=== PATIENT | female | born 1980 | race Caucasian/White ===

== ENCOUNTER 2017-01-31 17:21 | Emergency (ER) | payer MEDICAID, OTHER ==
[2017-01-31 17:21] VITALS: BMI 29.6
[2017-01-31 17:46] VITALS: RESP 18; O2SAT 100
[2017-01-31] MEDS ORDERED: Sodium Chloride 0.9% 1,000 ML IV ONE (18:10)
--- NOTE | 2017-01-31 18:22 | C.PDOC ---
History Of Present Illness <Shobha Stern - Last Filed: 01/31/17 18:44> <Jodi Brennan - Last Filed: 01/31/17 23:20> 36 y/o female with Hx of Anemia and Endometriosis surgery presents to ED with complaints of RUQ pain with associated diarrhea for "a couple of months". Patient denies fever, chills, nausea, vomiting, back pain or any other complaints at this time. 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 Constitutional: Negative for: Fever, Chills Gastrointestinal: Positive for: Abdominal Pain, Diarrhea. Negative for: Nausea , Vomiting, Constipation Genitourinary: Negative for: Dysuria, Frequency Musculoskeletal: Negative for: Back Pain Skin: Negative for: Rash <Shobha Stern - Last Filed: 01/31/17 18:44> Physical Exam - Physical Exam Appears: Non-toxic, No Acute Distress Skin: Normal Color, Warm, Dry, No Rash Head: Atraumatic, Normacephalic Eye(s): bilateral: Normal Inspection Oral Mucosa: Moist Neck: Normal ROM, Supple Chest: Symmetrical Cardiovascular: Rhythm Regular, No Murmur Respiratory: Normal Breath Sounds, No Rales, No Rhonchi, No Wheezing Gastrointestinal/Abdominal: Soft, Tenderness (Mild RUQ), No Guarding, No Rebound Back: No CVA Tenderness, No Paraspinal Tenderness Extremity: Normal ROM, Capillary Refill (<2 seconds) Neurological/Psych: Oriented x3 Gait: Steady <Shobha Stern - Last Filed: 01/31/17 18:44> ED Course And Treatment - Laboratory Results Result Diagrams: 01/31/17 18:24 01/31/17 18:24 O2 Sat by Pulse Oximetry: 100 (RA) Pulse Ox Interpretation: Normal Progress Note: treated with IVF NSS. US abdomen ordered Reassessment Condition: Unchanged <Shobha Stern Last Filed: 01/31/17 18:44> - Laboratory Results Result Diagrams: 01/31/17 18:24 01/31/17 18:24 - CT Scan/US US Abdomen Other Rad Studies (CT/US): Interpreted By Me, Read By Radiologist CT/US Interpretation: EXAM: US Abdomen Limited, Right Upper Quadrant. EXAM DATE/TIME: Exam ordered 01/31/2017 6:14 PM. CLINICAL HISTORY: 36 years old, female; Pain; Abdominal pain; Generalized; Additional info: Pain ruq. TECHNIQUE : Real-time ultrasound of the right upper quadrant with image documentation. COMPARISON: No relevant prior studies available. FINDINGS: Liver: The echotexture the liver is somewhat coarsened. The liver measures 13 cm in craniocaudal. span. There is normal blood flow direction in the main portal vein. Normal phasic flow is noted within. the right hepatic vein. Gallbladder : The gallbladder is contracted. No gallstones are seen. Common bile duct: The common bile duct measures 2 mm. No stones. No dilation. Pancreas: The pancreatic neck is normal. The head, body and tail are not well-seen due to bowel. gas. Right kidney: The right kidney measures 9.3 x 4.1 x 4.1 cm. A hypoechoic mass is noted in the. upper pole of the right kidney measuring 0.9 x 0.9 1.6 cm. There is mild posterior wall enhancement. There is poor through- transmission of sound No stones. Aorta: The mid and distal abdominal aorta are not seen due to bowel gas. IMPRESSION: 1. Coarsening of liver echotexture suggests underlying infiltrative process such as fatty infiltration or. fibrosis. This could also partly technical. 2. Hypoechoic mass in the upper pole the right kidney not meeting ultrasound criteria for simple cyst. Recommend abdominal CT or MRI follow-up in 1 year. <Jodi Brennan - Last Filed: 01/31/17 23:20> Medical Decision Making <Shobha Stern - Last Filed: 01/31/17 18:44> <Jodi Brennan - Last Filed: 01/31/17 23:20> Medical Decision Making: Plan: * Labs * Abdominal ultrasound (Shobha Stern) 11:15 Patient remains comfortable in ED. she is currently being treated with Augmentin for UTI. She has RUQ abdominal and right flank pain for several months. Ultrasound shows a hypoechoic mass in the upper pole of the right kidney that was not present on CT done 2013. Advised to follow up with Dr aHrry as an outpatient for further work-up. (Jodi Brennan) Disposition - Disposition Disposition Time: 19:00 - POA Present On Arrival: None <Shobha Stern - Last Filed: 01/31/17 18:44> - Disposition Disposition Time: 23:18 <Jodi Brennan - Last Filed: 01/31/17 23:20> - Disposition Referrals: Dusty Harry MD [Staff Provider] - Disposition: HOME/ ROUTINE Condition: STABLE Instructions: Flank Pain (ED) Forms: [employer] (Luxembourgish) - Clinical Impression Clinical Impression: Abdominal pain - PA / HOSPITALITY SPECIALIST / Resident Statement MD/DO has reviewed & agrees with the documentation as recorded. - Scribe Statement The provider has reviewed the documentation as recorded by the Scribe <Shobha Stern - Last Filed: 01/31/17 18:44> <Jodi Brennan - Last Filed: 01/31/17 23:20> - Scribe Statement Klebre Karimi All medical record entries made by the Scribe were at my direction and personally dictated by me. I have reviewed the chart and agree that the record accurately reflects my personal performance of the history, physical exam, medical decision making, and the department course for this patient. I have also personally directed, reviewed, and agree with the discharge instructions and disposition. (Shobha Stern) Physician Patient Turnover Patient Signed Over To: Jodi Brennan Handoff Comments: pending US <Shobha Stern - Last Filed: 01/31/17 18:44>
[2017-01-31] MEDS ORDERED: Sodium Chloride 0.9% 1,000 ML ONE (18:25)
[2017-01-31 18:28] LABS: BASO % 0.4 % (0.0-2.0); EOS % 0.6 % (0.0-4.0); HEMATOCRIT 29.2 % (34.0-47.0); LYMPH # 1.6 K/uL (1.0-4.3); MEAN CELL VOLUME 74.2 fL (81.0-99.0); MEAN CORPUSCULAR HEMOGLOBIN 22.7 pg (27.0-31.0); MEAN CORPUSCULAR HGB CONC 30.5 g/dL (33.0-37.0); MEAN PLATELET VOLUME 8.1 fL (7.2-11.7); MONO # 0.4 K/uL (0.0-0.8); MONO % 6.2 % (0.0-10.0); RED CELL DISTRIBUTION WIDTH 18.3 % (11.5-14.5); WHITE BLOOD COUNT 6.5 K/uL (4.8-10.8)
[2017-01-31 18:36] LABS: CHLORIDE 103 mmol/L (98-107)
[2017-01-31 18:37] LABS: SODIUM 140 mmol/L (132-148)
[2017-01-31 18:39] LABS: ALB/GLOB RATIO 1.3 (1.0-2.1); ALKALINE PHOSPHATASE 56 U/L (38-126); ALT/SGPT 21 U/L (9-52); AST/SGOT 23 U/L (14-36); BILIRUBIN,TOTAL 0.3 mg/dL (0.2-1.3); BLOOD UREA NITROGEN 10 mg/dL (7-17); CALCIUM 8.8 mg/dl (8.6-10.4); CARBON DIOXIDE 24 mmol/L (22-30); GFR AFRICAN-AMERICAN > 60; GLUCOSE,RANDOM 78 mg/dL (65-105); TOTAL PROTEIN 7.6 g/dL (6.3-8.3)
[2017-01-31 18:46] LABS: RBC URINE 5 /hpf (0-3); URINE BACTERIA FEW (<OCC); URINE BILIRUBIN NEGATIVE (NEGATIVE); URINE BLOOD NEGATIVE (NEGATIVE); URINE COLOR Straw (YELLOW); URINE GLUCOSE (UA) NORMAL (Normal); URINE KETONE NEGATIVE (NEGATIVE); URINE LEUKOCYTE ESTERASE 3+ Leu/uL (Negative); URINE PROTEIN NEGATIVE (NEGATIVE); URINE UROBILINOGEN NORMAL mg/dL (0.2-1.0); WBC URINE 36 /hpf (0-5)
[2017-01-31] MEDS ORDERED: Clindamycin 600mg/50ml D5W 600 MG/50 ML VIAL IVPB SCH (23:15)
[2017-01-31 23:36] VITALS: BP 123/78; PULSE 79; TEMP 98.7
--- NOTE | 2017-02-01 08:32 | US ---
Right upper quadrant abdominal ultrasound History: Right upper quadrant abdominal pain. Comparison: None available. Technique: Real-time sonography was performed through the right upper quadrant of the abdomen. Findings: Liver: 13 centimeters in length. Increased echogenicity of the hepatic parenchymal cortex suggestive for hepatic parenchymal disease versus fatty infiltration. Contracted gallbladder. No gross calculi or sludge. Normal wall thickness of 2.5 millimeters. Common bile duct measures 2 millimeters, within normal limits. Pancreas not well visualized. Visualized aorta and IVC are preserved. Right kidney: 9.3 x 4.1 x 4.1 centimeters. Hypoechoic mass noted in the upper pole the right kidney measuring 1.6 x 0.9 x 0.9 centimeters. Mild posterior wall enhancement. Poor through transmission of sound. No calculi. Impression: Hypoechoic mass in the upper pole of the right kidney not meeting ultrasound criteria for simple cyst. Recommend abdominal CT or MRI follow-up in 1 year. Coarsening of the liver echotexture suggesting underlying infiltrative process such as fatty infiltration or hepatic parenchymal disease. Clinical correlation. Pancreas not well visualized. These findings were preliminarily reported at 7:20 p.m. on 01/31/[address] Marcy Armando from [facility].
== END 2017-01-31 23:36 | disposition home or self-care (01) ==
LOC: C.ER 17:21
DX: R10.11 Right upper quadrant pain (principal)
CPT/HCPCS: 76705; 80053; 81001; 83690; 84703; 85025; 87086; 96360; 99285; J7040

== ENCOUNTER 2018-07-30 18:30 | Emergency (ER) | payer MEDICAID, OTHER ==
[2018-07-30 18:30] VITALS: BMI 29.6
[2018-07-30 21:34] LABS: BASO # 0.1 K/uL (0.0-0.2); BASO % 0.9 % (0.0-2.0); EOS % 0.1 % (0.0-4.0); HEMOGLOBIN 10.3 g/dL (11.0-16.0); LYMPH # 1.5 K/uL (1.0-4.3); LYMPH % 22.5 % (20.0-40.0); MEAN CELL VOLUME 78.7 fL (81.0-99.0); MEAN CORPUSCULAR HEMOGLOBIN 24.6 pg (27.0-31.0); MEAN CORPUSCULAR HGB CONC 31.3 g/dL (33.0-37.0); MEAN PLATELET VOLUME 8.6 fL (7.2-11.7); MONO # 0.4 K/uL (0.0-0.8); MONO % 5.5 % (0.0-10.0); NEUT # 4.7 K/uL (1.8-7.0); RBC 4.19 Mil/uL (3.80-5.20); RED CELL DISTRIBUTION WIDTH 18.8 % (11.5-14.5); WHITE BLOOD COUNT 6.6 K/uL (4.8-10.8)
[2018-07-30 21:38] LABS: SQUAMOUS EPITHIAL 16 /hpf (0-5); URINE BACTERIA MOD (<OCC); URINE BILIRUBIN NEGATIVE (NEGATIVE); URINE BLOOD NEGATIVE (NEGATIVE); URINE CLARITY Hazy (Clear); URINE COLOR Yellow (YELLOW); URINE GLUCOSE (UA) NORMAL (Normal); URINE LEUKOCYTE ESTERASE 3+ Leu/uL (Negative); URINE PROTEIN NEGATIVE (NEGATIVE); URINE UROBILINOGEN NORMAL mg/dL (0.2-1.0)
[2018-07-30 21:49] LABS: ALB/GLOB RATIO 1.6 (1.0-2.1); ALBUMIN 4.5 g/dL (3.5-5.0); ALT/SGPT 14 U/L (9-52); AST/SGOT 29 U/L (14-36); BLOOD UREA NITROGEN 4 mg/dL (7-17); CALCIUM 9.2 mg/dl (8.6-10.4); GFR NON-AFRICAN AMERICAN > 60
--- NOTE | 2018-07-30 21:55 | C.PDOC ---
History Of Present Illness 38 year old female presents to ED with complaint of right upper quadrant pain that began 3 weeks ago. Patient states that the pain is worse with lifting, sitting, and coughing. Patient states that she feels a soft bulge on her abdome n. Patient also states she has been experiencing 2 years of vomiting. She states that she had an endoscopy and was told she "had a hernia." She states that the vomiting has not worsened with the new abdominal pain. Patient denies fever, chills, nausea, and diarrhea. <Shobha Easley - Last Filed: 07/31/18 01:05> History Per: Patient History/Exam Limitations: no limitations Onset/Duration Of Symptoms: Other (3 weeks) Current Symptoms Are (Timing): Still Present Location Of Pain/Discomfort: RUQ Radiation Of Pain To:: None Quality Of Discomfort: "Pain" Associated Symptoms: Vomiting. denies: Fever, Chills, Nausea, Diarrhea Exacerbating Factors: Cough, Other (sitting, lifting) Alleviating Factors: None <Shobha Easley - Last Filed: 07/31/18 01:05> <Eliazar Mejia - Last Filed: 07/31/18 01:44> Time Seen by Provider: 07/30/18 19:56 Chief Complaint (Nursing): Abdominal Pain Past Medical History Reviewed: Historical Data, Nursing Documentation, Vital Signs Vital Signs: Last Vital Signs Temp 98.2 F 07/30/18 18:49 Pulse 70 07/30/18 18:49 Resp 18 07/30/18 18:49 BP 126/83 07/30/18 18:49 Pulse Ox 100 07/30/18 18:49 - Medical History PMH: No Chronic Diseases Surgical History: No Surg Hx Family History: States: Unknown Family Hx - Social History Hx Tobacco Use: No Hx Alcohol Use: No Hx Substance Use: No - Immunization History Hx Tetanus Toxoid Vaccination: No Hx Influenza Vaccination: No Hx Pneumococcal Vaccination: No <Shobha Easley Last Filed: 07/31/18 01:05> Vital Signs: Last Vital Signs Temp 98.2 F 07/30/18 18:49 Pulse 70 07/30/18 18:49 Resp 18 07/30/18 18:49 BP 126/83 07/30/18 18:49 Pulse Ox 100 07/31/18 01:05 <Eliazar Mejia - Last Filed: 07/31/18 01:44> Review Of Systems Constitutional: Negative for: Fever, Chills, Weakness Gastrointestinal: Positive for: Vomiting, Abdominal Pain (right upper quadrant). Negative for: Nausea Neurological: Negative for: Weakness, Numbness, Dizziness <Shobha Easley - Last Filed: 07/31/18 01:05> Physical Exam - Physical Exam Appears: Non-toxic, No Acute Distress Skin: Normal Color, Warm, Dry Head: Atraumatic, Normacephalic Eye(s): bilateral: Normal Inspection, PERRL, EOMI Oral Mucosa: Moist Neck: Normal ROM, Supple Chest: Symmetrical, No Deformity Cardiovascular: Rhythm Regular, No Murmur Respiratory: No Accessory Muscle Use, No Rales, No Rhonchi, No Wheezing Gastrointestinal/Abdominal: Tenderness (right upper quadrant tender to palpation), No Mass, No Other (Cabello's sign) Extremity: Capillary Refill (<2 seconds) Extremity: Bilateral: Atraumatic, Normal Color And Temperature, Normal ROM Neurological/Psych: Oriented x3, Normal Speech, Normal Cognition <Shobha Easley - Last Filed: 07/31/18 01:05> ED Course And Treatment - Laboratory Results Result Diagrams: 07/30/18 21:30 07/30/18 21:30 Lab Results: Total Bilirubin 0.5 mg/dL (0.2-1.3) 07/30/18 21:30 AST 29 U/L (14-36) 07/30/18 21:30 ALT 14 U/L (9-52) 07/30/18 21:30 Alkaline Phosphatase 69 U/L (38-126) 07/30/18 21:30 Total Protein 7.4 g/dL (6.3-8.3) 07/30/18 21:30 Albumin 4.5 g/dL (3.5-5.0) 07/30/18 21:30 Globulin 2.8 gm/dL (2.2-3.9) 07/30/18 21:30 Albumin/Globulin Ratio 1.6 (1.0-2.1) 07/30/18 21:30 Urine Color Yellow (YELLOW) 07/30/18 21:30 Urine Clarity Hazy (Clear) 07/30/18 21:30 Urine pH 8.0 (5.0-8.0) 07/30/18 21:30 Ur Specific [place] 1.008 (1.003-1.030) 07/30/18 21: Urine Protein Negative mg/dL (NEGATIVE) 07/30/18 21:30 Urine Glucose (UA) Normal mg/dL (Normal) 07/30/18 21:30 Urine Ketones Negative mg/dL (NEGATIVE) 07/30/18 21:30 Urine Blood Negative (NEGATIVE) 07/30/18 21: Urine Nitrate Negative (NEGATIVE) 07/30/18 21:30 Urine Bilirubin Negative (NEGATIVE) 07/30/18 21: Urine Urobilinogen Normal mg/dL (0.2-1.0) 07/30/18 21:30 Ur Leukocyte Esterase 3+ [place]/uL (Negative) H 07/30/18 21:30 Urine WBC (Auto) 18 /hpf (0-5) H 07/30/18 21:30 Urine RBC (Auto) 2 /hpf (0-3) 07/30/18 21:30 Ur Squamous Epith Cells 16 /hpf (0-5) H 07/30/18 21:30 Urine Bacteria Mod (<OCC) H 07/30/18 21:30 O2 Sat by Pulse Oximetry: 100 (in RA) <Shobha Easley - Last Filed: 07/31/18 01:05> - Laboratory Results Result Diagrams: 07/30/18 21:30 07/30/18 21:30 Lab Results: Total Bilirubin 0.5 mg/dL (0.2-1.3) 07/30/18 21:30 AST 29 U/L (14-36) 07/30/18 21:30 ALT 14 U/L (9-52) 07/30/18 21:30 Alkaline Phosphatase 69 U/L (38-126) 07/30/18 21:30 Total Protein 7.4 g/dL (6.3-8.3) 07/30/18 21: Albumin 4.5 g/dL (3.5-5.0) 07/30/18 21:30 Globulin 2.8 gm/dL (2.2-3.9) 07/30/18 21:30 Albumin/Globulin Ratio 1.6 (1.0-2.1) 07/30/18 21:30 Urine Color Yellow (YELLOW) 07/30/18 21:30 Urine Clarity Hazy (Clear) 07/30/18 21:30 Urine pH 8.0 (5.0-8.0) 07/30/18 21:30 Ur Specific [place] 1.008 (1.003-1.030) 07/30/18 21:30 Urine Protein Negative mg/dL (NEGATIVE) 07/30/18 21:30 Urine Glucose (UA) Normal mg/dL (Normal) 07/30/18 21:30 Urine Ketones Negative mg/dL (NEGATIVE) 07/30/18 21:30 Urine Blood Negative (NEGATIVE) 07/30/18 21:30 Urine Nitrate Negative (NEGATIVE) 07/30/18 21:30 Urine Bilirubin Negative (NEGATIVE) 07/30/18 21:30 Urine Urobilinogen Normal mg/dL (0.2-1.0) 07/30/18 21:30 Ur Leukocyte Esterase 3+ [place]/uL (Negative) H 07/30/18 21:30 Urine WBC (Auto) 18 /hpf (0-5) H 07/30/18 21:30 Urine RBC (Auto) 2 /hpf (0-3) 07/30/18 21:30 Ur Squamous Epith Cells 16 /hpf (0-5) H 07/30/18 21:30 Urine Bacteria Mod (<OCC) H 07/30/18 21:30 Pulse Ox Interpretation: Normal Reevaluation Time: 01:41 Reassessment Condition: Improved <Eliazar Mejia - Last Filed: 07/31/18 01:44> Medical Decision Making Medical Decision Making: Impression: 38 year old female with right upper quadrant pain Plan: Abdomen/Pelvis CT CMP CBC Toradol IVP Zofran IVP UA MDM: Right upper quadrant pain with lifting and coughing Patient reports feeling a bulge; most likely soft tissue hernia Basic labs ordered Naproxen given for pain Imaging ordered Pending lab results 00:55- Patient finished drinking PO contrast was taken to CT at this time. <Shobha Easley - Last Filed: 07/31/18 01:05> Disposition <Shobha Easley - Last Filed: 07/31/18 01:05> Counseled Patient/Family Regarding: Studies Performed, Diagnosis, Need For Followup, Rx Given - Disposition Disposition Time: 01:43 <Eliazar Mejia - Last Filed: 07/31/18 01:44> - Disposition Referrals: Dusty Harry MD [Staff Provider] - Disposition: HOME/ ROUTINE Condition: FAIR Additional Instructions: Please return if symptoms recur Prescriptions: Nitrofurantoin Macrocrystals [Macrobid] 1 cap PO BID #14 cap Pantoprazole Sodium [Protonix] 20 mg PO DAILY #14 ect Instructions: Urinary Tract Infection, Adult (DC), Hiatal Hernia (DC) Forms: [employer] (Guyanese) - Clinical Impression Clinical Impression: Hiatal hernia, UTI (urinary tract infection) - Scribe Statement The provider has reviewed the documentation as recorded by the Scribe (Nayely Bazzi) All medical record entries made by the Scribe were at my direction and personally dictated by me. I have reviewed the chart and agree that the record accurately reflects my personal performance of the history, physical exam, medical decision making, and the department course for this patient. I have also personally directed, reviewed, and agree with the discharge instructions and disposition. <Shobha Easley - Last Filed: 07/31/18 01:05> Physician Patient Turnover Patient Signed Over To: Eliazar Mejia Handoff Comments: Pending CT scan results, and dispo <Shobha Easley - Last Filed: 07/31/18 01:05>
[2018-07-30] MEDS ORDERED: Iohexol 240 (50 ml) ONE (23:28)
[2018-07-31] MEDS ORDERED: Iodixanol 320 MG/ML 100 ML BOTTLE IV ONE (00:46)
[2018-07-31 01:58] VITALS: BP 122/79; PULSE 81; RESP 16; TEMP 98.3; O2SAT 98
--- NOTE | 2018-07-31 13:53 | CT ---
PROCEDURE: CT Abdomen and Pelvis with oral and IV contrast. HISTORY: RUQ pain with exertion. Poss abd wall hernia COMPARISON: CT abdomen and pelvis without contrast performed 12/19/13 TECHNIQUE: Contiguous axial images of the abdomen and pelvis. Oral and IV contrast was administered. Coronal and Sagittal reformats generated and reviewed. Contrast dose: 100 mL Visipaque 320 IV Radiation dose: Total exam DLP = 971.9 mGy-cm. This CT exam was performed using one or more of the following dose reduction techniques: Automated exposure control, adjustment of the mA and/or kV according to patient size, and/or use of iterative reconstruction technique. FINDINGS: LOWER THORAX: No visible consolidation, pleural effusion, or pneumothorax. Small hiatal hernia/distal esophageal wall thickening. LIVER: Unremarkable. GALLBLADDER AND BILE DUCTS: Unremarkable. PANCREAS: Unremarkable. SPLEEN: Unremarkable. ADRENALS: Unremarkable. KIDNEYS AND URETERS: The kidneys enhance symmetrically. No hydronephrosis or obstructing renal calculus. BLADDER: Thick-walled under distended urinary bladder. REPRODUCTIVE: Uterus is present. Probable bilateral ovarian cysts measuring up to approximately 2 cm on the right. Subtle prominence of the pelvic vasculature may reflect pelvic congestion syndrome. APPENDIX: The appendix appears within normal limits of caliber. No secondary signs of acute appendicitis. BOWEL: The stomach is nondistended. The bowel loops appear within normal limits of caliber without evidence of intestinal obstruction. Mild thickening of the colon at the hepatic flexure possibly related to under distension; correlate clinically. PERITONEUM: No significant free fluid. No definite free air. LYMPH NODES: No bulky lymphadenopathy identified. VASCULATURE: No aortic aneurysm. No atherosclerotic calcification or mural plaque present. BONES: No acute osseous abnormality is detected. OTHER FINDINGS: Tiny fat containing umbilical hernia. IMPRESSION: Probable bilateral ovarian cysts measuring up to 2 cm on the right. Small hiatal hernia/distal esophageal wall thickening. Tiny fat containing umbilical hernia. Mild thickening of the colon at the hepatic flexure possibly related to under distension; correlate clinically. Thick-walled under distended urinary bladder. Additional findings as above. Preliminary impression was provided by [employer].
== END 2018-07-31 01:58 | disposition home or self-care (01) ==
LOC: C.ER 18:30
DX: K44.9 Diaphragmatic hernia without obstruction or gangrene (principal); N39.0 Urinary tract infection, site not specified
CPT/HCPCS: 74177; 80053; 81001; 81025; 85025; 96374; 96375; 99285; J1885; J2405; Q9967

== ENCOUNTER 2018-08-04 17:26 | Emergency (ER) | payer MEDICAID ==
[2018-08-04 17:26] VITALS: BMI 29.6
[2018-08-04 17:33] VITALS: O2SAT 100
--- NOTE | 2018-08-04 18:02 | C.PDOC ---
History Of Present Illness 38 y/o female presents to the ED complaining of persistent RUQ pain for 2 weeks. Associated with nausea and multiple episodes of vomiting for the past 4 days. Patient also complains of new-onset "band like" pain radiating from the ep igastrium, which is described as constricting her upper abdomen. Of note, patient was seen here for similar complaint on 07/30, and had CT showing bilateral ovarian cysts, a small hiatal hernia, and a tiny umbilical hernia. Patient was discharged home with Protonix and Macrobid for UTI. She reports c ompliance with medications, but feels as if they are making her "dry." Patient states she has been unable to tolerate any PO fluids today. She also notes decreased urine output. Otherwise patient denies any fevers, chills, chest pain, SOB, dizziness, or other associated symptoms. <Gloria Del Valle - Last Filed: 08/04/18 18:57> History Per: Patient History/Exam Limitations: no limitations Onset/Duration Of Symptoms: Days Current Symptoms Are (Timing): Still Present Location Of Pain/Discomfort: RUQ Quality Of Discomfort: "Pain" <Gloria Del Valle - Last Filed: 08/04/18 18:57> <Gayle Oneil - Last Filed: 08/04/18 20:09> Time Seen by Provider: 08/04/18 17:36 Chief Complaint (Nursing): Abdominal Pain Past Medical History Reviewed: Historical Data, Nursing Documentation, Vital Signs Vital Signs: Last Vital Signs Temp 98.8 F 08/04/18 17:30 Pulse 108 H 08/04/18 17:30 Resp 17 08/04/18 17:30 BP 143/90 08/04/18 17:30 Pulse Ox 100 08/04/18 17:30 Other Surgeries: LAPAROSCOPY FOR ENDOMETRIOSIS Family History: States: Unknown Family Hx - Social History Hx Tobacco Use: No Hx Alcohol Use: No Hx Substance Use: No - Immunization History Hx Tetanus Toxoid Vaccination: No Hx Influenza Vaccination: No Hx Pneumococcal Vaccination: No <Gloria Del Valle - Last Filed: 08/04/18 18:57> Vital Signs: Last Vital Signs Temp 98.8 F 08/04/18 17:30 Pulse 108 H 08/04/18 17:30 Resp 17 08/04/18 17:30 BP 143/90 08/04/18 17:30 Pulse Ox 100 08/04/18 18:58 <Gayle Oneil - Last Filed: 08/04/18 20:09> Review Of Systems Except As Marked, All Systems Reviewed And Found Negative. Constitutional: Negative for: Fever, Chills Cardiovascular: Negative for: Chest Pain Respiratory: Negative for: Cough, Shortness of Breath Gastrointestinal: Positive for: Nausea, Vomiting, Abdominal Pain. Negative for: Diarrhea, Constipation Genitourinary: Positive for: Other (Decreased urine output) Skin: Negative for: Rash Neurological: Negative for: Weakness, Numbness, Headache <Gloria Del Valle Last Filed: 08/04/18 18:57> Physical Exam - Physical Exam Appears: Non-toxic, No Acute Distress Skin: Warm, Dry, No Rash Head: Atraumatic, Normacephalic Eye(s): bilateral: Normal Inspection, PERRL, EOMI Oral Mucosa: Moist Neck: Normal ROM Chest: Symmetrical Cardiovascular: Rhythm Regular, No Murmur Respiratory: Normal Breath Sounds, No Accessory Muscle Use, Other (NARD) Gastrointestinal/Abdominal: Soft, Tenderness (mild epigastric tenderness), No Guarding, No Rebound Back: Normal Inspection, No CVA Tenderness, No Vertebral Tenderness Extremity: Bilateral: Atraumatic, Normal Color And Temperature Pulses: Left Radial: Normal, Right Radial: Normal Neurological/Psych: Oriented x3, Normal Speech Gait: Steady <Gloria Del Valle Last Filed: 08/04/18 18:57> ED Course And Treatment - Laboratory Results Result Diagrams: 08/04/18 18:11 08/04/18 18:11 O2 Sat by Pulse Oximetry: 100 (RA) Pulse Ox Interpretation: Normal <Gloria Del Valle Last Filed: 08/04/18 18:57> - Laboratory Results Result Diagrams: 08/04/18 18:11 08/04/18 18:11 Lab Results: Total Bilirubin 0.6 mg/dL (0.2-1.3) 08/04/18 18:11 AST 27 U/L (14-36) 08/04/18 18:11 ALT 13 U/L (9-52) 08/04/18 18:11 Alkaline Phosphatase 67 U/L (38-126) 08/04/18 18:11 Total Protein 8.1 g/dL (6.3-8.3) 08/04/18 18:11 Albumin 4.9 g/dL (3.5-5.0) 08/04/18 18:11 Globulin 3.2 gm/dL (2.2-3.9) 08/04/18 18:11 Albumin/Globulin Ratio 1.5 (1.0-2.1) 08/04/18 18:11 Lipase 64 U/L (23-300) 08/04/18 18:11 - CT Scan/US abdomen US Other Rad Studies (CT/US): Read By Radiologist, Radiology Report Reviewed CT/US Interpretation: History. Abdominal pain. Comparison. None. Technique. Sonographic evaluation of the right upper quadrant of the abdomen. Findings. Liver. Measures 11.8 cm in length. Increased echogenicity of the liver parenchyma. No mass. No intrahepatic bile duct dilatation. Gallbladder. Unremarkable. No gallstones. Wall thickness measures 0.12 cm. Common bile duct. Measures 3.1 mm. No stones. No dilatation. Pancreas. Limited visualization of the pancreas. Right kidney. Measures 9.46 x 3.71 x 3.98 cm in length. Normal echogenicity. No calculus, mass, or hydronephrosis. Aorta. No aneurysmal dilatation. IVC. Unremarkable. Other Findings. None. Impression. No acute pathology. Fatty liver. <Gayle Oneil - Last Filed: 08/04/18 20:09> Medical Decision Making Medical Decision Making: Initial Plan: - Basic blood work - Urinalysis - Abdominal US - 2 mg IV Morphine - 4 mg IV Zofran - Reassess <Gloria Del Valle - Last Filed: 08/04/18 18:57> Disposition Counseled Patient/Family Regarding: Studies Performed, Diagnosis - Disposition Disposition Time: 19:00 <Gloria Del Valle - Last Filed: 08/04/18 18:57> - Disposition Disposition Time: 20:07 - POA Present On Arrival: None <Gayle Oneil - Last Filed: 08/04/18 20:09> - Disposition Referrals: Dusty Harry MD [Staff Provider] - Disposition: HOME/ ROUTINE Condition: STABLE Additional Instructions: BRANDON FREEMAN, thank you for letting us take care of you today. The emergency medical care you received today was directed at your acute symptoms. If you were prescribed any medication, please fill it and take as directed. It may take several days for your symptoms to resolve. Return to the Emergency Department if your symptoms worsen, do not improve, or if you have any other problems. Please contact your doctor for a follow up appointment in 1-2 days. Bring any paperwork you were given at discharge with you along with any medications you are taking to your follow up visit. Our treatment cannot replace ongoing medical care by a primary care provider outside of the emergency department. Thank you for allowing the [facility] team to be part of your care today. If you had an X-Ray or CT scan: A Radiologist will review the ED reading if any change in treatment is needed we will contact you. If you had a blood, urine, or wound culture: It will take several days for the results, if any change in treatment is needed we will contact you. If you had an STI test: It will take 48 hours for the results. Please call after 1 week if you have not heard back. Instructions: Acute Abdomen (Belly Pain), Adult (DC) Forms: [employer] (Hebrew) - Clinical Impression Clinical Impression: Abdominal pain - Scribe Statement The provider has reviewed the documentation as recorded by the Aurora Choudhary Provider Attestation: All medical record entries made by the Sabrinaibe were at my direction and personally dictated by me. I have reviewed the chart and agree that the record accurately reflects my personal performance of the history, physical exam, medical decision making, and the department course for this patient. I have also personally directed, reviewed, and agree with the discharge instructions and disposition. <Gloria Del Valle - Last Filed: 08/04/18 18:57> Physician Patient Turnover Patient Signed Over To: Gayle Oneil Handoff Comments: PATRICIA FLYNN, DISPO <Gloria Del Valle - Last Filed: 08/04/18 18:57>
[2018-08-04] MEDS ORDERED: Sodium Chloride 0.9% 1,000 ML IV ONE (18:10)
[2018-08-04 18:15] LABS: BASO % 0.7 % (0.0-2.0); EOS % 0.1 % (0.0-4.0); HEMOGLOBIN 10.7 g/dL (11.0-16.0); LYMPH # 1.3 K/uL (1.0-4.3); LYMPH % 18.5 % (20.0-40.0); MEAN CELL VOLUME 78.1 fL (81.0-99.0); MEAN PLATELET VOLUME 8.5 fL (7.2-11.7); MONO # 0.4 K/uL (0.0-0.8); MONO % 5.4 % (0.0-10.0); NEUT # 5.2 K/uL (1.8-7.0); NEUT % 75.3 % (50.0-75.0); RBC 4.27 Mil/uL (3.80-5.20); RED CELL DISTRIBUTION WIDTH 19.1 % (11.5-14.5); WHITE BLOOD COUNT 6.9 K/uL (4.8-10.8)
[2018-08-04 18:35] LABS: ALB/GLOB RATIO 1.5 (1.0-2.1); ALBUMIN 4.9 g/dL (3.5-5.0); ALT/SGPT 13 U/L (9-52); AST/SGOT 27 U/L (14-36); BLOOD UREA NITROGEN 10 mg/dL (7-17); CALCIUM 9.5 mg/dl (8.6-10.4); GFR NON-AFRICAN AMERICAN > 60; LIPASE 64 U/L (23-300)
[2018-08-04 20:18] VITALS: BP 119/78; PULSE 87; RESP 16; TEMP 98.4
--- NOTE | 2018-08-05 09:17 | US ---
Date of service: 08/04/2018 HISTORY: Abdominal pain COMPARISON: None. TECHNIQUE: Sonographic evaluation of the right upper quadrant of the abdomen. FINDINGS: LIVER: Measures 11.8 cm in length. There is diffuse increased echogenicity of the liver parenchyma. No mass. No intrahepatic bile duct dilatation. GALLBLADDER: There are no gallstones, wall thickening or pericholecystic fluid. The sonographic Cabello's sign is negative. COMMON BILE DUCT: Measures 3.1 mm. No stones. No dilatation. PANCREAS: Unremarkable as visualized. No mass. No ductal dilatation. RIGHT KIDNEY: Measures 0.4 cm in length. Normal echogenicity. No calculus, mass, or hydronephrosis. AORTA: No aneurysmal dilatation. IVC: Unremarkable. OTHER FINDINGS: None . IMPRESSION: No cholelithiasis or biliary dilatation. Fatty liver.
== END 2018-08-04 20:27 | disposition home or self-care (01) ==
LOC: C.ER 17:26
DX: R10.9 Unspecified abdominal pain (principal)
CPT/HCPCS: 76705; 80053; 83690; 85025; 96360; 99284; J7030